=== PATIENT | male | born 1980 | race Caucasian/White ===

== ENCOUNTER → 2016-03-14 | Outpatient (REF) | payer OTHER | LOC: M SFHCLERA 14:45 | PROVIDERS: ATTEND Nurse Practitioner Family | DX: J06.9 Acute upper respiratory infection, unspecified (principal) ==

== ENCOUNTER 2016-10-03 08:06 | Emergency (ER) | payer OTHER ==
[~2016-10-03] VITALS: Ht 180.3 cm; Wt 93.0 kg
[2016-10-03 08:43] LABS: CALCIUM OXALATE CRYSTALS SMALL
[2016-10-03] MEDS ORDERED: KETOROLAC 30 MG/ML VIAL (J1885) IV ONE ×2 (08:45→11:15)
[2016-10-03 08:55] LABS: BASO # 0.1 K/mm3 (0.0-0.2); BASO % 0.7 % (0.0-1.0); EOS # 0.4 K/mm3 (0.0-0.50); EOS % 3.5 % (0.0-3.0); LARGE UNSTAINED CELL # 0.2 K/mm3 (0.0-0.4); LARGE UNSTAINED CELL % 1.3 % (0.0-4.0); LYMPH # 1.9 K/mm3 (1.5-4.5); LYMPH % 15.1 % (24.0-44.0); MEAN CORPUSCULAR HGB CONC 34.2 g/dl (32.0-36.5); MEAN CORPUSCULAR VOLUME 82.1 fl (80.0-96.0); MONO # 0.6 K/mm3 (0.0-0.8); MONO % 5.3 % (0.0-5.0); NEUTROPHILS # 8.5 K/mm3 (1.8-7.7); NEUTROPHILS % 74.2 % (36.0-66.0); PLATELET COUNT, AUTOMATED 218 k/mm3 (150-450); RED CELL DISTRIBUTION WIDTH 12.7 % (11.5-14.5); WHITE BLOOD COUNT 11.5 K/mm3 (4.0-10.0)
[2016-10-03 08:59] LABS: ANION GAP 9 MEQ/L (8-16); BLOOD UREA NITROGEN 11 MG/DL (7-18); CALCIUM LEVEL 8.2 MG/DL (8.5-10.1); CARBON DIOXIDE LEVEL 27 MEQ/L (21-32); CHLORIDE LEVEL 108 MEQ/L (98-107); CREATININE FOR GFR 1.07 MG/DL (0.70-1.30); GLOMERULAR FILTRATION RATE > 60.0 (>60); GLUCOSE, FASTING 143 MG/DL (70-105); POTASSIUM SERUM 3.7 MEQ/L (3.5-5.1); SODIUM LEVEL 144 MEQ/L (136-145)
[2016-10-03] MEDS ORDERED: PERCOCET 5MG/325MG TAB PO ONE (09:45)
[2016-10-03] MEDS ORDERED: ONDANSETRON 4 MG ORAL DISINTEGRATING TAB (S0181) PO ONE (09:45)
[2016-10-03] MEDS ORDERED: TAMSULOSIN 0.4 MG CAP PO ONE (09:45)
[2016-10-03] MEDS ORDERED: NS 1,000 ML IV ONE (09:45)
[2016-10-03] MEDS ORDERED: NAPR500T PO (13:08)
[2016-10-03] MEDS ORDERED: FLOM5CAP PO (13:09)
[2016-10-03] MEDS ORDERED: PERC5TAB12 PO (13:09)
[2016-10-03] MEDS ORDERED: ZOFR4TAB3 PO (13:11)
[2016-10-03 13:19] VITALS: BP 136/87
--- NOTE | 2016-10-04 14:34 | REP ---
CT abdomen and pelvis without IV or oral contrast: History: Right flank pain. The patient reports prior appendectomy. No comparison studies. 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 There is a metallic suture in the right lower quadrant. On axial CT images, there is plate-like atelectasis in the right middle lobe and right lower lobe. Lung bases are otherwise clear. The liver and the spleen are normal in size and homogeneous in texture. No adrenal lesion is seen on either side. Pancreas is unremarkable. No gallbladder abnormality is seen. There are tiny intrarenal calculi bilaterally. There are two 2 mm calculi in the upper pole right kidney and one at mid pole level in the left kidney. There is a cyst in the upper pole of the left kidney measuring 1.7 cm. There is mild to moderate right-sided hydronephrosis. The right ureter is dilated and can be traced into the pelvis where there is a obstructing 3 mm right distal ureteral calculus. This is several centimeters above the ureterovesical junction. Small and large intestinal bowel loops are normal. There are surgical clips adjacent to the cecal tip post appendectomy. No other abnormality is seen. No abdominal wall defect or bony destructive lesion. Impression: 1. Moderate right-sided hydronephrosis and hydroureter due to an obstructing 3 mm distal ureteral calculus located 2-3 cm above the right ureterovesical junction. 2. Bilateral intrarenal nephrolithiasis. 3. Small cyst upper pole left kidney. 4. Post appendectomy. 5. Discoid atelectasis right middle lobe and right lower lobe. Signed by Yovany Cassidy MD 10/04/2016 03:07 P
--- NOTE | 2016-10-05 13:46 | ED PDOC ---
Post-Departure Follow-Up radiology report faxed to Balta Clarke Sarah MD Oct 05, 2016 13:46
== END 2016-10-03 13:27 | disposition home or self-care (01) ==
LOC: M ED 08:06
DX: N13.1 Hydronephrosis with ureteral stricture, not elsewhere classified (principal); J44.9 Chronic obstructive pulmonary disease, unspecified; Z88.2 Allergy status to sulfonamides
CPT/HCPCS: 74176; 80048; 81001; 85025; 87086; 96374; 96376; 99284; J1885

== ENCOUNTER → 2016-10-07 | Outpatient (REF) | payer OTHER ==
[~2016-10-07] MED LIST: FLOM5CAP PO; NAPR500T PO; PERC5TAB12 PO; ZOFR4TAB3 PO
== END ==
LOC: M SFHCLERA 07:41
PROVIDERS: ATTEND Physician Assistant
DX: N20.0 Calculus of kidney (principal)

== ENCOUNTER → 2016-10-11 | Outpatient (CLI) | payer OTHER ==
--- NOTE | 2016-10-11 07:45 | REP ---
Clinical: Nephrolithiasis. Comparison: CT dated 10/03/2016. Findings: The right kidney measures 12.7 x 5.3 x 4.8 cm and demonstrates 3 mm mid pole nonobstructing calculus. The right kidney is otherwise normal in contour, size, echogenicity, and reniform shape without obvious cystic abnormality or mass lesion. No evidence for residual hydroureteronephrosis. The left kidney measures 11.6 x 5.7 x 4.9 cm and includes 1.5 cm mid/upper pole cyst and 3 mm nonobstructing mid pole calculus. The left kidney is otherwise normal in contour, size, echogenicity, and reniform shape without obvious mass lesion or hydroureteronephrosis. Impression: 1. Previously noted right-sided hydroureteronephrosis has resolved. 3 mm nonobstructing bilateral renal calculi are identified along with 1.5 cm left renal cyst which may warrant annual followup. Signed by Quirino Marley MD 10/11/2016 07:37 A
== END ==
LOC: M RAD 06:59
PROVIDERS: ATTEND Physician Assistant
DX: N20.0 Calculus of kidney (principal)

== ENCOUNTER 2018-02-28 19:01 | Emergency (ER) | payer OTHER ==
[~2018-02-28] VITALS: Ht 180.3 cm; Wt 93.2 kg
[~2018-02-28 19:01] MED LIST changes: +FLOM0.4C39 PO; -FLOM5CAP PO; +NAPR-50 PO; -NAPR500T PO; +ZOFR4TAB14 PO; -ZOFR4TAB3 PO
--- NOTE | 2018-02-28 20:52 | REPVR ---
EXAM: US Scrotum EXAM DATE/TIME: 02/28/2018 8:31 PM CLINICAL HISTORY: 37 years old, male; Pain; Scrotum pain; Additional info: Testicular pain TECHNIQUE: Real-time ultrasound of the scrotum and contents with color Doppler and image documentation. COMPARISON: No relevant prior studies available. FINDINGS: Right Testicle: Right testicle measures 4.8 x 2.4 x 3.1 cm. Left Testicle: The left testicle measures 4.6 x 2.3 x 3.2 cm. The echotexture of the testes is symmetric homogeneous. Blood flow is demonstrated to both testes. Epididymides: The right epididymal head measures 1.1 cm greatest diameter. Tubular ectasia is noted of the body of the epididymis. The left epididymal head measures 2.9 cm in maximal diameter. There are 2 cyst arising from the head of the left epididymis. They measure 0.4 x 0.3 x 0.3 cm and 0.5 x 0.4 x 0.4 cm respectively. Scrotum: There is a small right hydrocele. There is a very small left hydrocele. IMPRESSION: 1. Tubular ectasia noted within the body and tail of the right epididymis. This corresponds to the palpable lump noted by the patient. Tubular ectasia may be idiopathic or associated with Vasectomy. No suspicious findings. 2. Normal ultrasound of the testes. 3. Epididymal cysts or spermatoceles in the head of the left epididymis Electronically signed by: Patricia Colmenares On 02/28/2018 20:52:26 PM
[2018-02-28 21:36] VITALS: BP 136/95
[2018-02-28 22:06] LABS: CHLAMYDIA DNA AMPLIFICATION NEGATIVE (NEGATIVE); GC DNA AMPLIFICATION NEGATIVE (NEGATIVE)
== END 2018-02-28 21:38 | disposition home or self-care (01) ==
LOC: M ED 19:01
DX: N50.811 Right testicular pain (principal); J44.9 Chronic obstructive pulmonary disease, unspecified; Z88.2 Allergy status to sulfonamides; Z79.899 Other long term (current) drug therapy

== ENCOUNTER 2022-05-09 11:24 | Emergency (ER) | payer OTHER ==
[~2022-05-09] VITALS: Ht 180.3 cm; Wt 100.9 kg
[~2022-05-09 11:24] MED LIST changes: -NAPR-50 PO; +NAPR-837 PO
[2022-05-09] MEDS ORDERED: OXYC1TAB23 PO (12:47)
[2022-05-09] MEDS ORDERED: ASPE4PAD TOP (12:50)
[2022-05-09 13:03] VITALS: BP 138/78
== END 2022-05-09 13:04 | disposition home or self-care (01) ==
LOC: M ED 11:24
DX: S22.43XA Multiple fractures of ribs, bilateral, initial encounter for closed fracture (principal); V86.55XA Driver of 3- or 4- wheeled all-terrain vehicle (ATV) injured in nontraffic accident, initial encounter; Y92.89 Other specified places as the place of occurrence of the external cause; Y93.89 Activity, other specified; Y99.8 Other external cause status; J44.9 Chronic obstructive pulmonary disease, unspecified; I10 Essential (primary) hypertension; Z88.8 Allergy status to other drugs, medicaments and biological substances; Z88.2 Allergy status to sulfonamides; Z79.899 Other long term (current) drug therapy

== ENCOUNTER → 2022-06-07 | Outpatient (REF) | payer OTHER ==
[~2022-06-07] MED LIST changes: +ASPE4PAD TOP; +OXYC1TAB23 PO
[2022-06-07 11:10] LABS: ALBUMIN 4.2 G/DL (3.2-5.2); ALKALINE PHOSPHATASE 95 U/L (46-116); ALT/SGPT 64 U/L (7.0-40); AST/SGOT 25 U/L (<34); BASO # 0.1 10^3/uL (0.0-0.2); BASO % 1.9 % (0.0-1.0); BILIRUBIN,TOTAL 0.5 MG/DL (0.3-1.2); BLOOD UREA NITROGEN 11 MG/DL (9-23); CALCIUM LEVEL 9.2 MG/DL (8.5-10.1); CARBON DIOXIDE LEVEL 32 MMOL/L (20-31); CHLORIDE LEVEL 102 MMOL/L (98-107); CHOLESTEROL LEVEL 195 MG/DL (<200); CHOLESTEROL RISK RATIO 5.24 (<5); CREATININE FOR GFR 0.95 MG/DL (0.70-1.30); EOS # 0.4 10^3/uL (0.0-0.5); EOS % 5.3 % (0.0-3.0); GLOMERULAR FILTRATION RATE > 60.0 (>60); GLUCOSE, FASTING 104 MG/DL (60-100); HDL CHOLESTEROL 37.2 MG/DL (>40); HEMATOCRIT 47.5 % (42.0-52.0); HEMOGLOBIN 15.1 g/dl (13.5-17.5); LYMPH # 1.9 10^3/uL (1.5-5.0); MEAN CORPUSCULAR HEMOGLOBIN 27.6 pg (27.0-33.0); MEAN CORPUSCULAR HGB CONC 31.8 g/dl (32.0-36.5); MEAN CORPUSCULAR VOLUME 86.8 fl (80.0-96.0); MONO # 0.7 10^3/uL (0.0-0.8); MONO % 8.9 % (2.0-8.0); NEUTROPHILS # 4.1 10^3/uL (1.5-8.5); NEUTROPHILS % 55.7 % (36.0-66.0); NON-HDL-C 157.8 MG/DL; PLATELET COUNT, AUTOMATED 241 10^3/uL (150-450); POTASSIUM SERUM 4.4 MMOL/L (3.5-5.1); RED BLOOD COUNT 5.47 10^6/uL (4.30-6.10); SODIUM LEVEL 138 MMOL/L (136-145); TOTAL PROTEIN 7.4 G/DL (5.7-8.2); TRIGLYCERIDES LEVEL 209 MG/DL (<150); WHITE BLOOD COUNT 7.3 10^3/uL (4.0-10.0)
[2022-06-07 11:14] LABS: THYROID STIMULATING HORMONE 1.055 uIU/ML (0.55-4.78); TOTAL 25(OH) VITAMIN D 18.4 NG/ML (20.0-100.0)
[2022-06-07 11:15] LABS: FREE T4 1.03 NG/DL (0.89-1.76)
== END ==
LOC: M PLALAB 10:01
PROVIDERS: ATTEND Physician Assistant
DX: I10 Essential (primary) hypertension (principal); Z13.6 Encounter for screening for cardiovascular disorders

== ENCOUNTER → 2024-11-14 | Outpatient (REF) | payer OTHER ==
[~2024-11-14] MED LIST changes: -FLOM0.4C39 PO; +TAMS-18 PO
[2024-11-14 18:03] LABS: APPEARANCE, URINE CLEAR (CLEAR); BACTERIA, URINE AUTO NEGATIVE (NEGATIVE); BILIRUBIN, URINE AUTO NEGATIVE (NEGATIVE); BLOOD, URINE BLOOD NEGATIVE (NEGATIVE); GLUCOSE, URINE (UA) AUTO NEGATIVE (NEGATIVE); KETONE, URINE AUTO NEGATIVE (NEGATIVE); LEUKOCYTE ESTERASE, URINE AUTO NEGATIVE (NEGATIVE); MUCUS, URINE SMALL (NEGATIVE); NITRITE, URINE AUTO NEGATIVE (NEGATIVE); PROTEIN, URINE AUTO NEGATIVE (NEGATIVE); RBC, URINE AUTO 0 /HPF (0-3); SPECIFIC GRAVITY URINE AUTO 1.023 (1.002-1.035); SQUAMOUS EPITHELIAL CELL UR AU 0 /HPF (0-6); UROBILINOGEN, URINE AUTO 2.0 mg/dL (0.0-2.0); WBC, URINE AUTO 0 /HPF (0-3)
[2024-11-14 18:40] LABS: ALT/SGPT 34 U/L (7.0-40); AST/SGOT 16 U/L (<34); CALCIUM LEVEL 9.3 MG/DL (8.5-10.1); CARBON DIOXIDE LEVEL 31 MMOL/L (20-31); CHLORIDE LEVEL 102 MMOL/L (98-107); CHOLESTEROL LEVEL 218 MG/DL (<200); CHOLESTEROL RISK RATIO 5.15 (<5); CREATININE FOR GFR 0.99 MG/DL (0.70-1.30); GLOMERULAR FILTRATION RATE > 90.0 (>60); LDL CHOLESTEROL 142.3 MG/DL (<100); NON-HDL-C 175.7 MG/DL; POTASSIUM SERUM 4.2 MMOL/L (3.5-5.1); SODIUM LEVEL 141 MMOL/L (136-145); TRIGLYCERIDES LEVEL 167 MG/DL (<150)
[2024-11-14 18:42] LABS: BASO # 0.1 10^3/uL (0.0-0.2); BASO % 1.7 % (0.0-1.0); EOS # 0.3 10^3/uL (0.0-0.5); EOS % 3.9 % (0.0-3.0); LYMPH # 1.7 10^3/uL (1.5-5.0); LYMPH % 24.6 % (24.0-44.0); MONO # 0.6 10^3/uL (0.0-0.8); MONO % 8.1 % (2.0-8.0); NEUTROPHILS # 4.2 10^3/uL (1.5-8.5); NEUTROPHILS % 61.4 % (36.0-66.0); PLATELET COUNT, AUTOMATED 247 10^3/uL (150-450)
[2024-11-14 18:43] LABS: TOTAL 25(OH) VITAMIN D 25.1 NG/ML (20.0-100.0)
[2024-11-14 19:03] LABS: ESTIMATED AVERAGE GLUCOSE 123.0 MG/DL (60-110)
[2024-11-14 19:13] LABS: HIV 1&2 SCREEN NEGATIVE (NEGATIVE)
[2024-11-14 19:21] LABS: HEPATITIS C VIRUS ABY INDEX < 0.02 INDEX (<0.8)
== END ==
LOC: M SFHCLERA 11:37
PROVIDERS: ATTEND Internal Medicine
DX: Z00.00 Encounter for general adult medical examination without abnormal findings (principal)